=== PATIENT | female | born 1975 | race Caucasian/White ===

== ENCOUNTER 2018-08-03 20:35 | Emergency (ER) | payer MEDICAID, OTHER ==
[~2018-08-03] VITALS: Ht 165.1 cm; Wt 71.1 kg
[2018-08-03 20:41] VITALS: Ht 165.1 cm; Wt 71.1 kg
--- NOTE | 2018-08-03 23:02 | ERD ---
ER Documentation Chief Complaint Chief Complaint TOTAL BACK PAIN X'S 1 DAY HPI This is a 42-year-old female who presents emergency department with complaints of back pain after falling this morning in the bathroom. Stated that she tripped, fell backwards, landed on her back, landed on a concrete floor. LMP: Stated that she does not know when was her last menstrual period. G3, P3, A0. Denies headache, head injury, loss of consciousness, dizziness, neck pain, neck stiffness, throat pain, difficulty swallowing, difficulty breathing lying flat, shoulder pain, chest pain, back pain, abdominal pain, nausea, vomiting, constipation, diarrhea, urinary symptoms, or possibility being pre gnant, loss of bowel and bladder control, trauma, injury, falls, difficulty walking due to pain, numbness or tingling sensation, calf pain, recent travel, recent major surgery in the last 3 weeks, calf pain, recent long travel, recent exposure to any illness, recent antibiotic use in the last 3 months, fever, chills, seizures. Past medical history: Surgical history: . Social: Denies smoking, use of alcoholic beverages, use of illegal drugs. ROS All systems reviewed and are negative except as per history of present illness. Medications Home Meds Active Scripts Cyclobenzaprine Hcl* (Cyclobenzaprine Hcl*) 10 Mg Tablet, 10 MG PO TID PRN for MUSCLE SPASMS, #15 TAB Prov:KELSY CORTEZAR F 08/04/18 Ibuprofen* (Motrin*) 800 Mg Tab, 800 MG PO Q6H PRN for PAIN AND OR ELEVATED TEMP, #30 TAB Prov:ADRIEN CORTEZ F 08/04/18 Allergies Allergies: Coded Allergies: No Known Allergy (Unverified , 08/03/18) PMhx/Soc Medical and Surgical Hx: pt denies Medical Hx, pt denies Surgical Hx Hx Alcohol Use: No Hx Substance Use: No Hx Tobacco Use: No Smoking Status: Never smoker Physical Exam Vitals Physical Exam Const: No acute distress Head: Atraumatic Eyes: Normal Conjunctiva ENT: Normal External Ears, Nose and Mouth. Neck: Full range of motion. No meningismus. Resp: Clear to auscultation bilaterally Cardio: Regular rate and rhythm, no murmurs Abd: Soft, non tender, non distended. Normal bowel sounds Skin: No petechiae or rashes. Color appears normal for ethnicity. No skin tenting. No signs of severe dehydration. Back: No midline or flank tenderness. C-spine is in midline with good and full range of motion and is no swelling/bulging/point of tenderness. T-spine/L-spine is in midline with no swelling/discoloration but has tenderness and pain to range of motion. Bilateral hips are stable and unremarkable. No saddle anesthesia. Ext: No cyanosis, or edema. Able to bear weight on left lower extremity. Able to bear weight on right lower extremity. Symmetrical knees. Negative straight leg test bilaterally. Negative cross straight leg test bilaterally. No calf tenderness bilaterally. Capillary refills to bilateral lower extremities are less than 2 seconds. Neur: Awake and alert. No neurological deficits. Psych: Normal Mood and Affect Results 24 hrs Laboratory Tests Test 08/03/18 22:59 POC Beta HCG, Qualitative NEGATIVE Current Medications Medications Dose Sig/Souleymane Start Time Status Last (Trade) Ordered Route PRN Stop Time Admin Dose Reason Admin Ketorolac 30 mg ONCE STAT 08/03/18 DC 08/03/18 Tromethamine IM 23:03 23:09 (Toradol) 08/03/18 23:04 Procedures/MDM Diagnostic tests: POC urine : Negative. X-ray of the T-spine: Mild S-shaped scoliosis as discussed above. Otherwise, normal radiographs of the thoracic spine. No evidence of fracture or significant degenerative disc disease. X-ray of the L-spine: 1. Moderate spondylosis/degenerative enthesopathy at L5- S1. 2. Bilateral L5 pars interarticularis defects with subsequent grade to anterolisthesis and associated neural foraminal narrowing. 3. Moderate facet spondylosis at L5-S1 with suggestion of neural foraminal narrowing at this level. 4. No evidence of fracture. Treatment: Toradol IM. Flexeril. Re-evaluation: Denies chest pain. No neurovascular deficit. No saddle anesthesia. No neurological deficit. Ambulatory with steady gait. Differential diagnosis I have low suspicion for spinal fracture, pyelonephritis, nephrolithiasis, obstructing kidney stones, pelvic fracture, compartment syndrome, DVT. Final diagnosis: Back contusion. Prescription: Motrin. Flexeril. Follow-up with PCP in the next 24-48 hours. Come back here in the emergency department for any new symptoms or any worsening symptoms. All questions and concerns were answered. Patient and family members verbalized understanding and agreed with plan of care. Hemodynamically stable on discharge. Departure Diagnosis: Primary Impression: Back contusion Condition: Stable Additional Instructions: Follow-up with PCP in the next 24-48 hours. Come back here in the emergency department for any new symptoms or any worsening symptoms. ADRIEN CORTEZ Aug 03, 2018 23:02
[2018-08-03] MEDS ORDERED: KETOROLAC 30 MG INJ IM STA (23:03)
[2018-08-04] MEDS ORDERED: CYCL10TA7 PO (02:04)
[2018-08-04] MEDS ORDERED: IBUP800T48 PO (02:04)
[2018-08-04 02:27] VITALS: BP 111/71; PULSE 71; RESP 18
== END 2018-08-04 02:28 | disposition home or self-care (01) ==
LOC: FTE 20:35
DX: S20.229A Contusion of unspecified back wall of thorax, initial encounter (principal); W01.0XXA Fall on same level from slipping, tripping and stumbling without subsequent striking against object, initial encounter; Y92.031 Bathroom in apartment as the place of occurrence of the external cause
CPT/HCPCS: 72072; 72100; 81025; 96372; J1885; Z7502